=== PATIENT | male | born 1975 | race Caucasian/White ===

== ENCOUNTER 2019-09-03 21:26 | Emergency (ER) | payer MEDICAID, OTHER ==
[2019-09-03] MEDS ORDERED: BABY ASPIRIN 81 MG CHEW PO ONE (21:30)
[2019-09-03] MEDS ORDERED: Nitrostat 0.4 MG (ED) SL ONE ×2 (21:30→22:12)
[2019-09-03] MEDS ORDERED: Sodium Chloride 0.9% 1000 ML 1,000 ML IV SCH (21:30)
[2019-09-03] MEDS ORDERED: Sodium Chloride 0.9% 1000 ML 1,000 ML ONE (21:43)
--- NOTE | 2019-09-03 21:53 | ERPHSYRPT ---
- History of Present Illness Time Seen by Provider: 09/03/19 21:30 Historian: patient, family Exam Limitations: no limitations Patient Subjective Stated Complaint: Chest pain Triage Nursing Assessment: Patient ambulated into ED and transferred to bed with assist per self. Patient A+O X 3. Patient's skin pink warm and dry. Patient 's stated after an argument patient started having chest pain. Patient complains of pressure in chest 5/10. Lungs clear a/p yuri. Heart tones audible. patient making moaning noises during breathing. Patient denies N/V. Physician History: patient is a 43-year-old male who developed substernal chest pain approximately one hour ago. The chest pain started after an argument with his significant other. The pain did not radiate. He rates the pain at present as zero but upon questioning says he does have tightness in the chest which he rates at 5. The patient seems somewhat slow to answer and may be under the influence of something. He does complain of shortness of breath but denies nausea vomiting or diaphoresis and in fact says he's had chills. Risk Factors. factors are negative for diabetes negative for hypertension positive for family history negative for cholesterol and he is a smoker. Timing/Duration: hour(s) (1) Activities at Onset: emotional stress Quality: pressure Location: substernal Chest Pain Radiation: no radiation Severity of Pain-Max: moderate Severity of Pain-Current: moderate Modifying Factors: Improves With: nothing Associated Symptoms: shortness of breath, chills Prior Chest Pain/Cardiac Workup: no prior cardiac workup Nitro Today/Relief: no nitro taken today Aspirin Treatment Today: no aspirin today Allergies/Adverse Reactions: codeine [Codeine] Allergy (Mild, Verified 09/03/19 21:41) Itching Home Medications: Alprazolam 0.5 mg [xanAX 0.5 MG] 1 tab PO DAILY 09/03/19 [History] Tramadol HCl 50 mg [Ultram 50 mg] 1 tab PO DAILY 09/03/19 [History] Hx Tetanus, Diphtheria Vaccination/Date Given: (UNKNOWN) Hx Influenza Vaccination/Date Given: No Hx Pneumococcal Vaccination/Date Given: No Immunizations Up to Date: Yes - Review of Systems Constitutional: Chills, No Fever Eyes: No Symptoms Ears, Nose, & Throat: No Symptoms Respiratory: No Cough, No Dyspnea Cardiac: Chest Pain, No Edema, No Syncope Abdominal/Gastrointestinal: No Abdominal Pain, No Nausea, No Vomiting, No Diarrhea Genitourinary Symptoms: No Dysuria Musculoskeletal: No Back Pain, No Neck Pain Skin: No Rash Neurological: Lethargy, No Dizziness, No Focal Weakness, No Sensory Changes Psychological: No Symptoms Endocrine: No Symptoms All Other Systems: Reviewed and Negative - Past Medical History Pertinent Past Medical History: Yes Neurological History: No Pertinent History ENT History: No Pertinent History Cardiac History: No Pertinent History Respiratory History: No Pertinent History Endocrine Medical History: No Pertinent History Musculoskeletal History: No Pertinent History GI Medical History: No Pertinent History History: No Pertinent History Psycho-Social History: Anxiety Male Reproductive Disorders: No Pertinent History - Past Surgical History Past Surgical History: Yes Neuro Surgical History: No Pertinent History Cardiac: No Pertinent History Respiratory: No Pertinent History Gastrointestinal: No Pertinent History Genitourinary: No Pertinent History Musculoskeletal: Orthopedic Surgery Male Surgical History: No Pertinent History Other Surgical History: Right hand, pinky finger surgery 2019 - Social History Smoking Status: Current every day smoker How long have you smoked: years Exposure to second hand smoke: Yes Drug Use: marijuana Patient Lives Alone: No - Nursing Vital Signs Nursing Vital Signs: Initial Vital Signs Temperature 98.9 F 09/03/19 21:28 Pulse Rate 96 H 09/03/19 21:28 Respiratory Rate 20 09/03/19 21:28 Blood Pressure 155/101 09/03/19 21:28 O2 Sat by Pulse Oximetry 98 09/03/19 21:28 Pain Scale Pain Intensity 0 - Physical Exam General Appearance: mild distress, alert Eye Exam: PERRL/EOMI, eyes nml inspection Ears, Nose, Throat Exam: normal ENT inspection, moist mucous membranes Neck Exam: normal inspection, non-tender, supple, full range of motion Respiratory Exam: normal breath sounds, lungs clear, No respiratory distress Cardiovascular Exam: regular rate/rhythm, normal heart sounds Gastrointestinal/Abdomen Exam: soft, No tenderness, No mass Back Exam: normal inspection, No CVA tenderness, No vertebral tenderness Extremity Exam: normal inspection, normal range of motion Neurologic Exam: alert, oriented x 3, cooperative, normal mood/affect, sensation nml, depressed mood/affect, No motor deficits Skin Exam: normal color, warm, dry Lymphatic Exam: No adenopathy SpO2 Interpretation: normal SpO2: 99 O2 Delivery: Room Air - Course Nursing assessment & vital signs reviewed: Yes EKG Interpreted by Me: RATE, Sinus Rhythm, NORMAL AXIS, NORMAL INTERVALS, NORMAL QRS - Radiology Exams Chest X-ray Interpretation: Interpreted by me, Negative - CT Exams Head CT Interpretation: Negative, Tele-radiologist Report Ordered Tests: Active Orders 24 hr Category Date Time Status Fitness Sales Consultant STAT Care 09/03/19 21:31 Active EKG-ER Only STAT Care 09/03/19 21:30 Active IV Insertion STAT Care 09/03/19 21:30 Active Pulse Oximetry (ED) STAT Care 09/03/19 21:30 Active CHEST 1 VIEW (PORTABLE) Stat Exams 09/03/19 21:31 Taken FINGER(S) Stat Exams 09/03/19 21:55 Taken HEAD WITHOUT CONTRAST [CT] Stat Exams 09/03/19 21:55 Taken CBC W DIFF Stat Lab 09/03/19 21:30 Completed CK-Creatinine Phosphokinase Stat Lab 09/03/19 22:26 Completed CMP Stat Lab 09/03/19 22:26 Completed D-DIMER QUANTITATION Stat Lab 09/03/19 21:30 Completed ETHYL ALCOHOL Stat Lab 09/03/19 22:26 Completed NT PRO BNP Stat Lab 09/03/19 22:26 Completed PROTIME WITH INR Stat Lab 09/03/19 21:30 Completed TROPONIN Q3H Lab 09/03/19 22:26 Completed TROPONIN Q3H Lab 09/04/19 01:44 Completed TROPONIN Q3H Lab 09/04/19 03:45 Ordered TROPONIN Q3H Lab 09/04/19 06:45 Ordered TROPONIN Q3H Lab 09/04/19 09:45 Ordered Urine Triage Profile Stat Lab 09/03/19 22:18 Completed Medication Summary Generic Name Dose Route Start Last Admin Trade Name Freq PRN Reason Stop Dose Admin Sodium Chloride 1,000 mls @ 100 mls/hr 09/03/19 21:30 09/03/19 21:50 Sodium Chloride 0.9% 1000 Ml IV 10/03/19 21:29 100 mls/hr .Q10H SANJEEV Administration Discontinued Medications Generic Name Dose Route Start Last Admin Trade Name Freq PRN Reason Stop Dose Admin Aspirin 324 mg 09/03/19 21:30 09/03/19 21:32 Baby Aspirin 81 Mg Chew PO 09/03/19 21:31 324 mg STAT ONE Administration Aspirin Confirm 09/03/19 22:12 Baby Aspirin 81 Mg Chew Administered 09/03/19 22:13 Dose 324 mg .ROUTE .STK-MED ONE Nitroglycerin 0.4 mg 09/03/19 21:30 09/03/19 21:37 Nitrostat 0.4 Mg (Ed) SL 09/03/19 21:31 0.4 mg STAT ONE Administration Nitroglycerin Confirm 09/03/19 22:12 Nitrostat 0.4 Mg (Ed) Administered 09/03/19 22:13 Dose 0.4 mg SL .STK-MED ONE Lab/Rad Data: Laboratory Result Diagrams 09/03/19 21:30 09/03/19 22:26 Laboratory Results 09/04/19 09/03/19 09/03/19 Range/Units 01:44 22:26 22:26 WBC (4.0-10.5) K/mm3 RBC (4.1-5.6) M/mm3 Hgb (12.5-18.0) gm/dl Hct (42-50) % MCV (78-100) fl MCH (26-32) pg MCHC (32-36) g/dl RDW (11.5-14.0) % Plt Count (150-450) K/mm3 MPV (6-9.5) fl Gran % (36.0-66.0) % Eos # (Auto) (0-0.5) Absolute Lymphs (auto) (1.0-4.6) Absolute Monos (auto) (0.0-1.3) Lymphocytes % (24.0-44.0) % Monocytes % (0.0-12.0) % Eosinophils % (0.00-5.0) % Basophils % (0.0-0.4) % Absolute Granulocytes (1.4-6.9) Basophils # (0-0.4) PT (8.83-12.87) SECONDS INR (0.8-3.0) D-Dimer (215-500) ng/mL Sodium (137-145) mmol/L Potassium (3.5-5.1) mmol/L Chloride (98-107) mmol/L Carbon Dioxide (22-30) mmol/L Anion Gap (5-15) MEQ/L BUN (9-20) mg/dL Creatinine (0.66-1.25) mg/dL Estimated GFR ML/MIN Glucose (74-106) mg/dL Calcium (8.4-10.2) mg/dL Total Bilirubin (0.2-1.3) mg/dL AST (17-59) U/L ALT (0-50) U/L Alkaline Phosphatase (38-126) U/L Creatine Kinase (55-170) U/L Troponin I < 0.012 < 0.012 (0.000-0.034) ng/mL NT-Pro-B Natriuret Pep (0-450) pg/mL Serum Total Protein (6.3-8.2) g/dL Albumin (3.5-5.0) g/dL Urine Opiates Level (NEGATIVE) Ur Methadone (NEGATIVE) Urine Barbiturates (NEGATIVE) Ur Phencyclidine (PCP) (NEGATIVE) Urine Amphetamine (NEGATIVE) U Benzodiazepine Level (NEGATIVE) Urine Cocaine (NEGATIVE) Urine Marijuana (THC) (NEGATIVE) Ethyl Alcohol 71 H (0-10) mg/dL 09/03/19 09/03/19 09/03/19 Range/Units 22:26 22:18 21:30 WBC (4.0-10.5) K/mm3 RBC (4.1-5.6) M/mm3 Hgb (12.5-18.0) gm/dl Hct (42-50) % MCV (78-100) fl MCH (26-32) pg MCHC (32-36) g/dl RDW (11.5-14.0) % Plt Count (150-450) K/mm3 MPV (6-9.5) fl Gran % (36.0-66.0) % Eos # (Auto) (0-0.5) Absolute Lymphs (auto) (1.0-4.6) Absolute Monos (auto) (0.0-1.3) Lymphocytes % (24.0-44.0) % Monocytes % (0.0-12.0) % Eosinophils % (0.00-5.0) % Basophils % (0.0-0.4) % Absolute Granulocytes (1.4-6.9) Basophils # (0-0.4) PT 14.2 H (8.83-12.87) SECONDS INR 1.25 (0.8-3.0) D-Dimer 279 (215-500) ng/mL Sodium 142 (137-145) mmol/L Potassium 3.5 (3.5-5.1) mmol/L Chloride 104 (98-107) mmol/L Carbon Dioxide 27 (22-30) mmol/L Anion Gap 14.9 (5-15) MEQ/L BUN 11 (9-20) mg/dL Creatinine 0.72 (0.66-1.25) mg/dL Estimated GFR > 60.0 ML/MIN Glucose 91 (74-106) mg/dL Calcium 9.6 (8.4-10.2) mg/dL Total Bilirubin 0.40 (0.2-1.3) mg/dL AST 84 H (17-59) U/L ALT 61 H (0-50) U/L Alkaline Phosphatase 96 (38-126) U/L Creatine Kinase 102 (55-170) U/L Troponin I (0.000-0.034) ng/mL NT-Pro-B Natriuret Pep 31.5 (0-450) pg/mL Serum Total Protein 8.4 H (6.3-8.2) g/dL Albumin 4.8 (3.5-5.0) g/dL Urine Opiates Level NEGATIVE (NEGATIVE) Ur Methadone NEGATIVE (NEGATIVE) Urine Barbiturates NEGATIVE (NEGATIVE) Ur Phencyclidine (PCP) NEGATIVE (NEGATIVE) Urine Amphetamine NEGATIVE (NEGATIVE) U Benzodiazepine Level NEGATIVE (NEGATIVE) Urine Cocaine NEGATIVE (NEGATIVE) Urine Marijuana (THC) NEGATIVE (NEGATIVE) Ethyl Alcohol (0-10) mg/dL 09/03/19 Range/Units 21:30 WBC 11.3 H (4.0-10.5) K/mm3 RBC 4.63 (4.1-5.6) M/mm3 Hgb 15.5 (12.5-18.0) gm/dl Hct 43.7 (42-50) % MCV 94.4 (78-100) fl MCH 33.5 H (26-32) pg MCHC 35.5 (32-36) g/dl RDW 12.2 (11.5-14.0) % Plt Count 292 (150-450) K/mm3 MPV 9.1 (6-9.5) fl Gran % 53.9 (36.0-66.0) % Eos # (Auto) 0.26 (0-0.5) Absolute Lymphs (auto) 4.09 (1.0-4.6) Absolute Monos (auto) 0.83 (0.0-1.3) Lymphocytes % 36.1 (24.0-44.0) % Monocytes % 7.3 (0.0-12.0) % Eosinophils % 2.3 (0.00-5.0) % Basophils % 0.4 (0.0-0.4) % Absolute Granulocytes 6.10 (1.4-6.9) Basophils # 0.04 (0-0.4) PT (8.83-12.87) SECONDS INR (0.8-3.0) D-Dimer (215-500) ng/mL Sodium (137-145) mmol/L Potassium (3.5-5.1) mmol/L Chloride (98-107) mmol/L Carbon Dioxide (22-30) mmol/L Anion Gap (5-15) MEQ/L BUN (9-20) mg/dL Creatinine (0.66-1.25) mg/dL Estimated GFR ML/MIN Glucose (74-106) mg/dL Calcium (8.4-10.2) mg/dL Total Bilirubin (0.2-1.3) mg/dL AST (17-59) U/L ALT (0-50) U/L Alkaline Phosphatase (38-126) U/L Creatine Kinase (55-170) U/L Troponin I (0.000-0.034) ng/mL NT-Pro-B Natriuret Pep (0-450) pg/mL Serum Total Protein (6.3-8.2) g/dL Albumin (3.5-5.0) g/dL Urine Opiates Level (NEGATIVE) Ur Methadone (NEGATIVE) Urine Barbiturates (NEGATIVE) Ur Phencyclidine (PCP) (NEGATIVE) Urine Amphetamine (NEGATIVE) U Benzodiazepine Level (NEGATIVE) Urine Cocaine (NEGATIVE) Urine Marijuana (THC) (NEGATIVE) Ethyl Alcohol (0-10) mg/dL - Progress Progress: improved Air Movement: good Blood Culture(s) Obtained: No Antibiotics given: No - Departure Departure Disposition: Home Clinical Impression: Chest pain of uncertain etiology Condition: Stable Critical Care Time: No Referrals: ALEX FOWLER MD [Primary Care Provider] - Instructions: Atypical Chest Pain Plan of Treatment: ffollowup with Dr. Fowler in the next few days
[2019-09-03 22:07] LABS: BASOPHIL % 0.4 % (0.0-0.4); Basophil (Absolute #) 0.04 (0-0.4); Eosinophil % 2.3 % (0.00-5.0); Eosinophil (Absolute #) 0.26 (0-0.5); Hematocrit 43.7 % (42-50); Hemoglobin 15.5 gm/dl (12.5-18.0); Lymphocyte (Absolute #) 4.09 (1.0-4.6); Lymphocytes % 36.1 % (24.0-44.0); Mean Cell Volume 94.4 fl (78-100); Mean Corpuscular Hemoglobin 33.5 pg (26-32); Mean Corpuscular Hgb Concent. 35.5 g/dl (32-36); Mean Platelet Volume 9.1 fl (6-9.5); Monocyte (Absolute #) 0.83 (0.0-1.3); Monocytes % 7.3 % (0.0-12.0); Neutrophil % 53.9 % (36.0-66.0); Platelet Count 292 K/mm3 (150-450); Red Blood Count 4.63 M/mm3 (4.1-5.6); Red Cell Distribution Width 12.2 % (11.5-14.0); White Blood Count 11.3 K/mm3 (4.0-10.5)
[2019-09-03] MEDS ORDERED: BABY ASPIRIN 81 MG CHEW ONE (22:12)
[2019-09-03 22:19] LABS: INR 1.25 (0.8-3.0); PROTIME 14.2 SECONDS (8.83-12.87)
[2019-09-03 22:24] LABS: ALBUMIN 4.8 g/dL (3.5-5.0); ALKALINE PHOSPHATASE 96 U/L (38-126); ANION GAP 14.9 MEQ/L (5-15); BLOOD UREA NITROGEN 11 mg/dL (9-20); CHLORIDE 104 mmol/L (98-107); CK-Creatinine Phosphokinase 102 U/L (55-170); Calcium 9.6 mg/dL (8.4-10.2); Carbon Dioxide 27 mmol/L (22-30); Creatinine 1 0.72 mg/dL (0.66-1.25); Glucose 91 mg/dL (74-106); Potassium 3.5 mmol/L (3.5-5.1); SGOT/AST 84 U/L (17-59); SGPT/ALT 61 U/L (0-50); SODIUM 142 mmol/L (137-145); Total Protein 8.4 g/dL (6.3-8.2)
[2019-09-03 22:54] LABS: NT PRO BNP 31.5 pg/mL (0-450)
[2019-09-03 22:58] LABS: Amphetamine,Urine NEGATIVE (NEGATIVE); Barbiturate,Urine NEGATIVE (NEGATIVE); Benzodiazepine,Urine NEGATIVE (NEGATIVE); Cocaine,Urine NEGATIVE (NEGATIVE); Methadone,Urine NEGATIVE (NEGATIVE); Opiate,Urine NEGATIVE (NEGATIVE); PCP,Urine NEGATIVE (NEGATIVE); THC,Urine NEGATIVE (NEGATIVE)
[2019-09-04 01:21] VITALS: BP 131/85
[2019-09-04 01:42] VITALS: O2SAT 99
[2019-09-04 02:00] VITALS: PULSE 64
--- NOTE | 2019-09-04 08:44 | XRAY ---
Indication: Chest pain. Comparison: June 07, 2012. Portable chest less inflated and remains clear. Heart is not enlarged. Bony thorax intact with minimal scoliosis. No new/acute findings. Impression: Nonacute chest.
--- NOTE | 2019-09-04 08:46 | XRAY ---
Indication: Altered mental status. Possible ingestion of foreign substance. Chest pain, short of breath, and anxiety. Multiple contiguous axial images obtained through the head without contrast. Comparison: June 11, 2012. Again normal appearing brain parenchyma, ventricles, and bony calvarium. Visualized paranasal sinuses are clear. There remains minimal opacification of inferior right mastoid air cells. Impression: Again minimal opacification of the right mastoid air cells presumed inflammatory. Otherwise normal CT head without contrast exam. Comment: Preliminary interpretation was made by [facility]. No critical discrepancy. CT DI 55.71
--- NOTE | 2019-09-04 08:54 | XRAY ---
Indication: Pain. Comparison: March 05, 2019. 3 views of the right 5th finger again demonstrates PIP flexion with new overlying mild soft tissue swelling. No other bony, articular, or soft tissue abnormalities.
== END 2019-09-04 02:10 | disposition home or self-care (01) ==
LOC: ED 21:26
DX: R07.9 Chest pain, unspecified (principal)
CPT/HCPCS: 36000; 36415; 70450; 71045; 73140; 80053; 80307; 82550; 83880; 84484; 85025; 85379; 85610; 93005; 93041; 94760; 99284; G0480; A9270-GY

== ENCOUNTER 2021-06-30 05:59 | Day surgery (SDC) | payer OTHER ==
[2021-06-30] MEDS ORDERED: Lactated Ringers 1,000 ML IV SCH (06:00)
[2021-06-30] MEDS ORDERED: Versed 2 MG/2 ML Injection ONE (07:41)
[2021-06-30] MEDS ORDERED: DIPRIVAN 200 MG/20 ML IV ONE ×3 (07:43→07:58)
[2021-06-30 08:52] VITALS: BP 133/83; PULSE 70; O2SAT 98
--- NOTE | 2021-06-30 09:31 | OP ---
SURGERY DATE/TIME: 06/30/2021 0739 PREOPERATIVE DIAGNOSIS: Hematochezia. POSTOPERATIVE DIAGNOSES: 1) Rectal polyp. 2) Anal fissure. PROCEDURE: Colonoscopy. SURGEON: Isai Valentin M.D. ANESTHESIA: MAC by Vance Rodarte CRNA. ESTIMATED BLOOD LOSS: Minimal. SPECIMENS: Cold forceps biopsy of rectal polyp. DESCRIPTION OF PROCEDURE: After informed written consent was obtained, the patient was taken to the endoscopy suite. He underwent monitored anesthesia and digital rectal exam was performed and showed normal sphincter tone and no internal lesions. The scope was inserted into the rectum and sequentially the entire colonic mucosa was traversed. The level of cecum was reached and verified with direct visualization of the ileocecal valve. Upon withdrawal careful mucosal inspection revealed no gross abnormalities until the distal rectum was reached. Upon retroflexion there was a small polypoid lesion in the distal rectum which was grasped with forceps and removed with minimal blood loss. On retroflexion it was also visible that there was a small anal fissure with no active bleeding just inside the anal verge. No other abnormalities were encountered. The scope was removed and the patient was transferred to the recovery room in good condition. I have advised that he follow up in a week for pathology.
== END 2021-06-30 09:01 | disposition home or self-care (01) ==
LOC: SDC 05:59
PROVIDERS: ATTEND Family Medicine
DX: K62.1 Rectal polyp (principal); K60.2 Anal fissure, unspecified
CPT/HCPCS: 88305; J2250; J2704

== ENCOUNTER 2021-07-21 10:09 | Day surgery (SDC) | payer OTHER ==
[2012-06-07 20:53] VITALS: BP 115/68
[2021-07-21] MEDS ORDERED: Sodium Chloride 0.9(Preservative Free) 10 ML IJ ONE (10:10)
[2021-07-21] MEDS ORDERED: Depo-Medrol 40 MG/ML IM ONE (10:10)
[2021-07-21] MEDS ORDERED: DIPRIVAN 200 MG/20 ML IV ONE (11:15)
--- NOTE | 2021-07-21 12:47 | XRAY ---
Indication: Left L4-S1 transforaminal LORNA. Intraoperative fluoroscopy provided for 29 seconds. 4 digital spot image submitted for interpretation demonstrates posterior needle tips projecting over the expected left L4 and L5 nerve roots. Small amount of contrast injected for both needle tip placement. Correlate with intraoperative findings/report.
--- NOTE | 2021-07-21 13:38 | XRAY ---
29 seconds fluoroscopy time in surgery for left L4-S1 transforaminal LORNA.
[2021-07-21] MEDS ORDERED: Lactated Ringers 1,000 ML IV ONE (17:25)
== END 2021-07-21 11:39 | disposition home or self-care (01) ==
LOC: SDC-PAIN 10:09
PROVIDERS: ATTEND Psychiatry & Neurology Pain Medicine
DX: M54.16 Radiculopathy, lumbar region (principal); F41.9 Anxiety disorder, unspecified; F32.9 Major depressive disorder, single episode, unspecified; M19.90 Unspecified osteoarthritis, unspecified site; K21.9 Gastro-esophageal reflux disease without esophagitis; Z79.899 Other long term (current) drug therapy
CPT/HCPCS: 64483; 64484; 72100; 77003; J1030; J2704; Q9966

== ENCOUNTER 2022-10-11 13:38 | Emergency (ER) | payer OTHER ==
[2022-10-11] MEDS ORDERED: Sodium Chloride 0.9% 1000 ML 1,000 ML IV STA (14:08)
[2022-10-11] MEDS ORDERED: Zofran 4 MG/2 ML VIAL IV ONE (14:11)
[2022-10-11] MEDS ORDERED: PROTONIX 40 MG IV IV ONE ×2 (14:11→14:30)
--- NOTE | 2022-10-11 14:15 | ERPHSYRPT ---
- History of Present Illness Time Seen by Provider: 10/11/22 13:50 Source: patient, family Exam Limitations: no limitations Patient Subjective Stated Complaint: Pt reports he has been dizzy since this morning causing him to fall at least three times today no loss of consciousness. Complains of nausea, shaking, and occasional shortness of breath. Triage Nursing Assessment: Pt ambulated to cot without difficulty. Alert and oriented x3. No apparent respiratory distress. PERRLA. Strong and equal coremaker machine in bilateral upper extremities. Physician History: This is a 47-year-old white male patient of Dr. Fowler who has a history of gastroesophageal reflux disease and significant history of alcohol and marijuana consumption and admits to drinking alcohol and smoking marijuana nearly daily. He has not had any marijuana or alcohol today. This morning, the patient complained of dizziness and fell 3 times. He has had shortness of breath, headache and body aches. He also has had episodes of shaking and nausea that began this morning and have been intermittent. He denies chest pain. He does not have any abdominal pain. He has not had any diarrhea or fevers. He has no known exposures to individuals with similar symptoms or that have been diagnosed with flus or viral illness. Timing/Duration: today Severity: moderate Associated Symptoms: nausea, shortness of breath, headaches, loss of appetite, syncope, No vomiting, No abdominal pain Allergies/Adverse Reactions: codeine [Codeine] Allergy (Mild, Verified 10/11/22 13:40) Itching Home Medications: ALPRAZolam 0.5 MG [xanAX 0.5 MG] 1 tab PO DAILY PRN PRN 09/03/19 [History] Ibuprofen 800 mg PO Q4-6HPRN PRN 06/23/21 [History] PANTOPRAZOLE 40 mg Tablet [Protonix 40MG Tablet] 40 mg PO DAILY 10/11/22 [History] Hx Tetanus, Diphtheria Vaccination/Date Given: Yes Hx Influenza Vaccination/Date Given: No Hx Pneumococcal Vaccination/Date Given: No Travel Risk - International Travel Have you traveled outside of the country in past 3 weeks: No - Coronavirus Screening Are you exhibiting any of the following symptoms?: Yes Symptoms: Shortness of Breath, Headaches/Body Aches/Fatigue Close contact with a COVID-19 positive Pt in past 14-21 Days: No - Vaccine Status Have you recieved a Covid-19 vaccination: No - Review of Systems Constitutional: Weakness Eyes: No Symptoms Ears, Nose, & Throat: No Symptoms Respiratory: Dyspnea Cardiac: No Symptoms Abdominal/Gastrointestinal: Nausea, No Abdominal Pain, No Vomiting, No Diarrhea, No Constipation Genitourinary Symptoms: No Symptoms Musculoskeletal: No Symptoms Skin: No Symptoms Neurological: Dizziness, Headache, Other (Remittent shaking today) Psychological: No Symptoms Endocrine: No Symptoms Hematologic/Lymphatic: No Symptoms Immunological/Allergic: No Symptoms All Other Systems: Reviewed and Negative - Past Medical History Pertinent Past Medical History: Yes Neurological History: No Pertinent History ENT History: No Pertinent History Cardiac History: No Pertinent History Respiratory History: No Pertinent History Endocrine Medical History: No Pertinent History Musculoskeletal History: Degenerative Disk Disease GI Medical History: GERD History: No Pertinent History Psycho-Social History: Anxiety Male Reproductive Disorders: No Pertinent History Other Medical History: deteriorated disk disorder lower back - Past Surgical History Past Surgical History: Yes Neuro Surgical History: No Pertinent History Cardiac: No Pertinent History Respiratory: No Pertinent History Gastrointestinal: No Pertinent History Genitourinary: No Pertinent History Musculoskeletal: Orthopedic Surgery Male Surgical History: No Pertinent History Other Surgical History: Right hand, left and right pinky finger surgery 2019 - Social History Smoking Status: Current every day smoker How long have you smoked: 26 years Exposure to second hand smoke: Yes Drug Use: marijuana Patient Lives Alone: No - Nursing Vital Signs Nursing Vital Signs: Initial Vital Signs Temperature 97.8 F 10/11/22 13:41 Pulse Rate 91 H 10/11/22 13:41 Respiratory Rate 17 10/11/22 13:41 Blood Pressure 172/116 10/11/22 13:41 O2 Sat by Pulse Oximetry 98 10/11/22 13:41 Pain Scale Pain Intensity 0 - Physical Exam General Appearance: mild distress, alert, anxiety Eye Exam: PERRL/EOMI, eyes nml inspection Ears, Nose, Throat Exam: normal ENT inspection, moist mucous membranes Neck Exam: normal inspection, non-tender, supple, full range of motion Respiratory Exam: normal breath sounds, lungs clear, airway intact, No chest tenderness, No respiratory distress Cardiovascular Exam: regular rate/rhythm, normal heart sounds, normal peripheral pulses Gastrointestinal/Abdomen Exam: soft, normal bowel sounds, No tenderness Rectal Exam: not done Back Exam: normal inspection, normal range of motion, No CVA tenderness, No vertebral tenderness Extremity Exam: normal inspection, normal range of motion, pelvis stable Neurologic Exam: alert, oriented x 3, cooperative, medical service technician II-XII nml as tested, normal mood/affect, nml cerebellar function, nml station & gait, sensation nml Skin Exam: normal color, warm, dry Lymphatic Exam: No adenopathy SpO2 Interpretation: normal SpO2: 98 O2 Delivery: Room Air - Course Nursing assessment & vital signs reviewed: Yes EKG Interpreted by Me: RATE (85), Sinus Rhythm, Left Burnham Deviation, NORMAL INTERVALS, NORMAL QRS, NORMAL ST-T, Other (No acute ischemic changes on today's EKG.) Ordered Tests: Active Orders 24 hr Category Date Time Status EKG-ER Only STAT Care 10/11/22 14:08 Active IV Insertion STAT Care 10/11/22 14:08 Active Pulse Oximetry (ED) STAT Care 10/11/22 14:08 Active CHEST 1 VIEW (PORTABLE) Stat Exams 10/11/22 14:08 Completed HEAD WITHOUT CONTRAST [CT] Stat Exams 10/11/22 14:09 Completed CBC W DIFF Stat Lab 10/11/22 14:41 Received CMP Stat Lab 10/11/22 14:41 Completed ETHYL ALCOHOL Stat Lab 10/11/22 14:41 Completed NT PRO BNP Stat Lab 10/11/22 14:41 Completed PROTIME WITH INR Stat Lab 10/11/22 14:08 Completed TROPONIN Q4H Lab 10/11/22 14:41 Completed TROPONIN Q4H Lab 10/11/22 18:15 Ordered TROPONIN Q4H Lab 10/11/22 22:15 Ordered UA W/RFX UR CULTURE Stat Lab 10/11/22 14:24 Completed Urine Triage Profile Stat Lab 10/11/22 14:24 Completed Medication Summary Discontinued Medications Generic Name Dose Route Start Last Admin Trade Name Freq PRN Reason Stop Dose Admin Sodium Chloride 1,000 mls @ 999 mls/hr 10/11/22 14:08 10/11/22 15:38 Sodium Chloride 0.9% 1000 Ml IV 10/11/22 15:08 Infused .Q1H1M STA Infusion Sodium Chloride Confirm 10/11/22 14:30 Sodium Chloride 0.9% 1000 Ml Administered 10/11/22 14:31 Dose 1,000 mls @ ud .ROUTE .STK-MED ONE Ondansetron HCl 4 mg 10/11/22 14:11 10/11/22 14:35 Ondansetron Hcl 4 Mg/2 Ml Vial IV 10/11/22 14:12 4 mg STAT ONE Administration Ondansetron HCl Confirm 10/11/22 14:29 Ondansetron Hcl 4 Mg/2 Ml Vial Administered 10/11/22 14:30 Dose 4 mg .ROUTE .STK-MED ONE Pantoprazole Sodium 40 mg 10/11/22 14:11 10/11/22 14:35 Pantoprazole 40 Mg Vial IV 10/11/22 14:12 40 mg STAT ONE Administration Pantoprazole Sodium Confirm 10/11/22 14:30 Pantoprazole 40 Mg Vial Administered 10/11/22 14:31 Dose 40 mg IV .STK-MED ONE Lab/Rad Data: Laboratory Result Diagrams 10/11/22 14:41 Laboratory Results 10/11/22 10/11/22 10/11/22 Range/Units 14:41 14:41 14:41 PT (9.4-12.5) SECONDS INR (0.8-3.0) Sodium (137-145) mmol/L Potassium (3.5-5.1) mmol/L Chloride (98-107) mmol/L Carbon Dioxide (22-30) mmol/L Anion Gap (5-15) MEQ/L BUN (9-20) mg/dL Creatinine (0.66-1.25) mg/dL Estimated GFR ML/MIN Glucose (74-106) mg/dL Calcium (8.4-10.2) mg/dL Total Bilirubin (0.2-1.3) mg/dL AST (17-59) U/L ALT (0-50) U/L Alkaline Phosphatase (38-126) U/L Troponin I < 0.012 (0.000-0.034) ng/mL NT-Pro-B Natriuret Pep (0-450) pg/mL Serum Total Protein (6.3-8.2) g/dL Albumin (3.5-5.0) g/dL Urine Color (Yellow) Urine Appearance (Clear) Urine pH (4.6-8.0) Ur Specific Sarah (1.005-1.030) Urine Protein (Negative) Urine Glucose (UA) (Negative) mg/dL Urine Ketones (Negative) Urine Blood (Negative) Urine Nitrite (Negative) Urine Bilirubin (Negative) Urine Urobilinogen (0.2) mg/dL Ur Leukocyte Esterase (Negative) U Hyaline Cast (Auto) (0-2) /LPF Urine Microscopic RBC (0-5) /HPF Urine Microscopic WBC (0-5) /HPF Ur Epithelial Cells (None Seen) /HPF Urine Bacteria (None Seen) /HPF Urine Culture Reflexed (NO) Urine Opiates Level (NEGATIVE) Ur Methadone (NEGATIVE) Urine Barbiturates (NEGATIVE) Ur Phencyclidine (PCP) (NEGATIVE) Urine Amphetamine (NEGATIVE) U Benzodiazepine Level (NEGATIVE) Urine Cocaine (NEGATIVE) Urine Marijuana (THC) (NEGATIVE) Ethyl Alcohol < 10 (0-10) mg/dL Influenza Type A Ag NEGATIVE (NEGATIVE) Influenza Type B Ag NEGATIVE (NEGATIVE) RSV (PCR) NEGATIVE (Negative) SARS-CoV-2 (PCR) NEGATIVE (NEGATIVE) 10/11/22 10/11/22 10/11/22 Range/Units 14:41 14:24 14:24 PT (9.4-12.5) SECONDS INR (0.8-3.0) Sodium 140 (137-145) mmol/L Potassium 3.6 (3.5-5.1) mmol/L Chloride 105 (98-107) mmol/L Carbon Dioxide 27 (22-30) mmol/L Anion Gap 12.5 (5-15) MEQ/L BUN 10 (9-20) mg/dL Creatinine 0.62 L (0.66-1.25) mg/dL Estimated GFR > 60.0 ML/MIN Glucose 126 H (74-106) mg/dL Calcium 9.1 (8.4-10.2) mg/dL Total Bilirubin 0.70 (0.2-1.3) mg/dL AST 146 H (17-59) U/L ALT 69 H (0-50) U/L Alkaline Phosphatase 221 H (38-126) U/L Troponin I (0.000-0.034) ng/mL NT-Pro-B Natriuret Pep 30.4 (0-450) pg/mL Serum Total Protein 7.7 (6.3-8.2) g/dL Albumin 4.4 (3.5-5.0) g/dL Urine Color Dark Yellow (Yellow) Urine Appearance Clear (Clear) Urine pH 6.5 (4.6-8.0) Ur Specific Sarah 1.025 (1.005-1.030) Urine Protein 30 (Negative) Urine Glucose (UA) Negative (Negative) mg/dL Urine Ketones Trace A (Negative) Urine Blood Negative (Negative) Urine Nitrite Negative (Negative) Urine Bilirubin Negative (Negative) Urine Urobilinogen 1.0 A (0.2) mg/dL Ur Leukocyte Esterase Negative (Negative) U Hyaline Cast (Auto) NONE SEEN (0-2) /LPF Urine Microscopic RBC 0-2 (0-5) /HPF Urine Microscopic WBC 0-2 (0-5) /HPF Ur Epithelial Cells None Seen (None Seen) /HPF Urine Bacteria None Seen (None Seen) /HPF Urine Culture Reflexed NO (NO) Urine Opiates Level NEGATIVE (NEGATIVE) Ur Methadone NEGATIVE (NEGATIVE) Urine Barbiturates NEGATIVE (NEGATIVE) Ur Phencyclidine (PCP) NEGATIVE (NEGATIVE) Urine Amphetamine NEGATIVE (NEGATIVE) U Benzodiazepine Level POSITIVE (NEGATIVE) Urine Cocaine NEGATIVE (NEGATIVE) Urine Marijuana (THC) POSITIVE (NEGATIVE) Ethyl Alcohol (0-10) mg/dL Influenza Type A Ag (NEGATIVE) Influenza Type B Ag (NEGATIVE) RSV (PCR) (Negative) SARS-CoV-2 (PCR) (NEGATIVE) 10/11/22 Range/Units 14:08 PT 13.6 H (9.4-12.5) SECONDS INR 1.32 (0.8-3.0) Sodium (137-145) mmol/L Potassium (3.5-5.1) mmol/L Chloride (98-107) mmol/L Carbon Dioxide (22-30) mmol/L Anion Gap (5-15) MEQ/L BUN (9-20) mg/dL Creatinine (0.66-1.25) mg/dL Estimated GFR ML/MIN Glucose (74-106) mg/dL Calcium (8.4-10.2) mg/dL Total Bilirubin (0.2-1.3) mg/dL AST (17-59) U/L ALT (0-50) U/L Alkaline Phosphatase (38-126) U/L Troponin I (0.000-0.034) ng/mL NT-Pro-B Natriuret Pep (0-450) pg/mL Serum Total Protein (6.3-8.2) g/dL Albumin (3.5-5.0) g/dL Urine Color (Yellow) Urine Appearance (Clear) Urine pH (4.6-8.0) Ur Specific Sarah (1.005-1.030) Urine Protein (Negative) Urine Glucose (UA) (Negative) mg/dL Urine Ketones (Negative) Urine Blood (Negative) Urine Nitrite (Negative) Urine Bilirubin (Negative) Urine Urobilinogen (0.2) mg/dL Ur Leukocyte Esterase (Negative) U Hyaline Cast (Auto) (0-2) /LPF Urine Microscopic RBC (0-5) /HPF Urine Microscopic WBC (0-5) /HPF Ur Epithelial Cells (None Seen) /HPF Urine Bacteria (None Seen) /HPF Urine Culture Reflexed (NO) Urine Opiates Level (NEGATIVE) Ur Methadone (NEGATIVE) Urine Barbiturates (NEGATIVE) Ur Phencyclidine (PCP) (NEGATIVE) Urine Amphetamine (NEGATIVE) U Benzodiazepine Level (NEGATIVE) Urine Cocaine (NEGATIVE) Urine Marijuana (THC) (NEGATIVE) Ethyl Alcohol (0-10) mg/dL Influenza Type A Ag (NEGATIVE) Influenza Type B Ag (NEGATIVE) RSV (PCR) (Negative) SARS-CoV-2 (PCR) (NEGATIVE) - Progress Progress: improved, pain not gone completely, re-examined Progress Note: 10/11/22 16:26 Chest x-ray shows no acute cardiopulmonary process. This was evaluated and interpreted by me. 10/11/22 16:50 Ct scan head without contrast normal Counseled pt/family regarding: lab results, diagnosis, need for follow-up, rad results - Departure Departure Disposition: Home Clinical Impression: Headache, Dizziness, Elevated liver enzymes Condition: Stable Critical Care Time: No Referrals: ALEX FOWLER MD [Primary Care Provider] - Follow up/PCP as directed Additional Instructions: Follow-up with Dr. Fowler. Call his office tomorrow to make arranges for follow- up appointment.
[2022-10-11] MEDS ORDERED: Zofran 4 MG/2 ML VIAL ONE (14:29)
[2022-10-11] MEDS ORDERED: Sodium Chloride 0.9% 1000 ML 1,000 ML ONE (14:30)
--- NOTE | 2022-10-11 14:34 | XRAY ---
Indication: Short of breath. Comparison: September 03, 2019 Portable apical lordotic chest remains inflated and clear. Heart and mediastinal structures within normal limits. Bony thorax intact. Impression: Continued nonacute chest.
[2022-10-11 14:48] LABS: Absolute Neutrophil Ct (ANC) 8.31 x10^3/uL (1.4-6.9); Basophil (Absolute #) 0.05 x10^3/uL (0-0.4); Eosinophil % 1.6 % (0.00-5.0); Eosinophil (Absolute #) 0.17 x10^3/uL (0-0.5); Hemoglobin 16.4 g/dL (12.5-18.0); Lymphocytes % 14.9 % (24.0-44.0); Mean Cell Volume 99.2 fL (78-100); Mean Corpuscular Hemoglobin 34.6 pg (26-32); Mean Corpuscular Hgb Concent. 34.9 g/dL (32-36); Mean Platelet Volume 8.9 fL (7.5-11.0); Monocytes % 5.6 % (0.0-12.0); Platelet Count 198 x10^3/uL (150-450); Red Blood Count 4.74 x10^6/uL (4.1-5.6); White Blood Count 10.8 x10^3/uL (4.0-10.5)
[2022-10-11 15:02] LABS: INR 1.32 (0.8-3.0); PROTIME 13.6 SECONDS (9.4-12.5)
[2022-10-11 15:05] LABS: Appearance Clear (Clear); Bacteria None Seen /HPF (None Seen); Bilirubin Negative (Negative); Blood Negative (Negative); Epithelial Cells None Seen /HPF (None Seen); Glucose, Urine Negative (Negative); Hyaline Casts NONE SEEN /LPF (0-2); Ketones Trace (Negative); Leukocyte Esterase Negative (Negative); Nitrite Negative (Negative); Ph 6.5 (4.6-8.0); Protein,Urine Dip 30 (Negative); RBC 0-2 /HPF (0-5); Specific Gravity 1.025 (1.005-1.030); WBC 0-2 /HPF (0-5)
[2022-10-11 15:10] LABS: ADD URINE CULTURE? NO (NO)
[2022-10-11 15:12] VITALS: O2SAT 98
[2022-10-11 15:25] LABS: ALBUMIN 4.4 g/dL (3.5-5.0); ALKALINE PHOSPHATASE 221 U/L (38-126); ANION GAP 12.5 MEQ/L (5-15); BLOOD UREA NITROGEN 10 mg/dL (9-20); CHLORIDE 105 mmol/L (98-107); Calcium 9.1 mg/dL (8.4-10.2); Carbon Dioxide 27 mmol/L (22-30); Creatinine 1 0.62 mg/dL (0.66-1.25); EST GLOMERULAR FILTRATION RATE > 60.0 ML/MIN; Glucose 126 mg/dL (74-106); NT PRO BNP 30.4 pg/mL (0-450); Potassium 3.6 mmol/L (3.5-5.1); SGOT/AST 146 U/L (17-59); SGPT/ALT 69 U/L (0-50); SODIUM 140 mmol/L (137-145); Total Protein 7.7 g/dL (6.3-8.2)
[2022-10-11 15:38] LABS: Amphetamine,Urine NEGATIVE (NEGATIVE); Barbiturate,Urine NEGATIVE (NEGATIVE); Benzodiazepine,Urine POSITIVE (NEGATIVE); Cocaine,Urine NEGATIVE (NEGATIVE); Methadone,Urine NEGATIVE (NEGATIVE); Opiate,Urine NEGATIVE (NEGATIVE); PCP,Urine NEGATIVE (NEGATIVE); THC,Urine POSITIVE (NEGATIVE)
[2022-10-11 15:40] LABS: INFLUENZA A NEGATIVE (NEGATIVE); INFLUENZA B NEGATIVE (NEGATIVE); RESPIRATORY SYNCTIAL VIRUS NEGATIVE (Negative); SARS-CoV-2 Xpert Express NEGATIVE (NEGATIVE)
--- NOTE | 2022-10-11 16:31 | XRAY ---
Indication: Headache, dizziness, and near syncope. Multiple contiguous axial images obtained through the head without contrast. Comparison: August 26, 2022 Normal appearing brain parenchyma, ventricles, and bony calvarium. Visualized paranasal sinuses and mastoid air cells are clear. Impression: Continued normal CT head without contrast exam.
[2022-10-11 17:05] VITALS: BP 154/96; PULSE 76
== END 2022-10-11 17:14 | disposition home or self-care (01) ==
LOC: ED 13:38
DX: R42 Dizziness and giddiness (principal); R51.9 Headache, unspecified; R74.8 Abnormal levels of other serum enzymes; R06.02 Shortness of breath; R11.0 Nausea; Z79.899 Other long term (current) drug therapy; Z28.310 Unvaccinated for COVID-19; Z72.0 Tobacco use
CPT/HCPCS: 0241U; 36000; 36415; 70450; 71045; 80053; 80307; 81001; 83880; 84484; 85025; 85610; 93005; 94760; 96360; 96374; 96375; 99284; G0480; J2405